=== PATIENT | male | born 1970 | race Caucasian/White ===

== ENCOUNTER 2019-04-21 05:57 | Inpatient (IN) | payer OTHER ==
[~2019-04-21 05:57] MED LIST: Buffered Lidocaine 1% SYRIN* 1 ML/SYRINGE INTRADERM ONE
[2019-04-21] MEDS ORDERED: Famotidine IV* 10 MG/ML 2 ML (20 mg) IV ONE (06:00)
[2019-04-21] MEDS ORDERED: Clindamycin 900 MG/D5W BAG(*) 900 MG/50 ML BAG IVPB ONE (06:34)
[2019-04-21] MEDS ORDERED: Famotidine IV* 10 MG/ML 2 ML (20 mg) ONE (06:34)
[2019-04-21] MEDS: Lactated Ringers 1000 ML Bag* 1,000 ML IV SCH (06:54)
[2019-04-21] MEDS ORDERED: Midazolam* 1 MG/ML 5 ML VIAL (5 MG) ONE (07:13)
[2019-04-21] MEDS ORDERED: Lidocaine 2% PF * 5 ML VIAL ONE (07:13)
[2019-04-21] MEDS ORDERED: Bupivacaine 0.25% SDV PF* 10 ML VIAL INJ ONE (07:13)
[2019-04-21] MEDS ORDERED: Propofol* 10 MG/ML 20 ML BTL ONE (07:13)
[2019-04-21] MEDS ORDERED: fentaNYL* 50 MCG/ML 5 ML VIAL (250 MCG VIAL) ONE (07:13)
[2019-04-21] MEDS ORDERED: Ketorolac INJ* 30 MG/ML 1 ML VIAL ONE (07:13)
[2019-04-21] MEDS ORDERED: KETAMINE HCL* 50 MG/ML 10 ML VIAL ONE (07:13)
[2019-04-21] MEDS ORDERED: Dexamethasone IV* 4 MG/ML 1 ML (4 MG) ONE (07:13)
[2019-04-21] MEDS ORDERED: Ondansetron INJ* 2 MG/ML VIAL ONE (07:13)
[2019-04-21] MEDS ORDERED: EPHEDrine (Pressors)* 50 MG/ML VIAL ONE (08:14)
[2019-04-21] MEDS ORDERED: Phenylephrine 40 MCG/ML SYRINGE ONE (08:22)
[2019-04-21] MEDS ORDERED: VASOPRESSIN 20 UNITS/ML 1 ML VIAL ONE (08:32)
[2019-04-21] MEDS ORDERED: fentaNYL* 50 MCG/ML 2 ML VIAL (100 MCG VIAL) IV PRN (09:22)
[2019-04-21] MEDS ORDERED: Naloxone* 0.4 MG/ML 1 ML VIAL IV PRN (09:22)
[2019-04-21] MEDS ORDERED: Ondansetron INJ* 2 MG/ML VIAL IV PRN (09:22)
[2019-04-21] MEDS ORDERED: fentaNYL* 50 MCG/ML 2 ML VIAL (100 MCG VIAL) ONE (10:31)
[2019-04-21] MEDS ORDERED: Nitroglycerin TAB 0.4 MG* 0.4 MG TAB ONE (11:19)
[2019-04-21] MEDS ORDERED: Morphine 4 MG/ML VIAL (1 ml) 4 MG/ML VIAL ONE ×3 (11:40→13:04)
[2019-04-21 13:59] LABS: Troponin I 0.08 ng/mL (<0.04)
[2019-04-21] MEDS ORDERED: Magnesium Hydroxide LIQ* 30 ML UDC PO PRN (14:22)
[2019-04-21] MEDS ORDERED: nitroGLYCERIN DRIP* 25,000 MCG/250 ML BTL IV SCH (15:30)
[2019-04-21] MEDS ORDERED: Heparin DRIP 25,000 UNITS(*) 25,000 UNITS/500 ML BAG IV SCH (15:30)
[2019-04-21 15:37] LABS: ABS Lymphocytes 0.8 10^3/ul (1.0-4.8); ABS Monocytes 0.3 10^3/ul (0-0.8); ABS Neutrophils 11.7 10^3/ul (1.5-7.7); Eosinophil % 0.1 %; Hematocrit 38 % (42-52); Hemoglobin 12.9 g/dL (14.0-18.0); Lymphocyte % 6.4 %; Mean Corpuscular HGB Conc 34 g/dL (31-36); Mean Corpuscular Hemoglobin 31 pg (27-31); Mean Corpuscular Volume 92 fL (80-94); Mean Platelet Volume 8.1 fL (7.4-10.4); Platelet Count 263 10^3/uL (150-450); Red Blood Count 4.13 10^6 /uL (4.18-5.48); Red Cell Distribution Width 13 % (10-15); White Blood Count 12.9 10^3/uL (3.5-10.8)
[2019-04-21 15:44] LABS: Activated Partial Thrombo Time 29.5 seconds (26.0-38.0)
[2019-04-21 15:53] LABS: Albumin 4.5 g/dL (3.2-5.2); Albumin/Globulin Ratio 1.6 (1-3); BUN/Creatinine Ratio 19.2 (8-20); Calcium 9.1 mg/dL (8.6-10.3); EGFR African American 91.8 (>60); EGFR Non-African American 75.9 (>60); Globulin 2.9 g/dL (2-4); Potassium 4.2 mmol/L (3.5-5.0); Total Bilirubin 0.4 mg/dL (0.2-1.0); Total Protein 7.4 g/dL (6.4-8.9)
--- NOTE | 2019-04-21 17:52 | CONS ---
CC: Dr. Delcid, Orthopedics; [facility]; Dr. Dupont, [facility], [address] [place], [place] [id number] CARDIOLOGY CONSULTATION: DATE OF CONSULT: 04/21/19 INDICATION FOR CONSULTATION: Coronary artery disease, chest pain, status post biceps tendon repair. HISTORY OF PRESENT ILLNESS: The patient is a 48-year-old gentleman with a history of coronary artery disease, history of an acute anterior wall myocardial infarction in October 2014, at that time he had a stent placed to his LAD. He also had jailed diagonal vessel at that time as well as diffuse disease of second diagonal vessel. Since then, he has had 3 episodes of non-STEMI with elevated troponin leve . Each time, a cardiac catheterization showed no progression of coronary artery disease, but consi derable disease to his diagonal vessel D1 and D2. The patient came to the [facility] this morning, he underwent tendon repair on his right b iceps tendon by Dr. Delcid. Postanesthesia, the patient was complaining of severe chest pain, he angelica cribed it as an 8/10 chest pain, radiating up into his jaw. The patient was given multiple nitroglyc radha tablets. EKG showed normal sinus rhythm with nonspecific T-wave abnormalities, but no evidence of acute ST segment elevation or depression. The patient continued to get nitroglycerin and pain con trol. Ultimately, his pain decreased when I saw him in the recovery area. He described his pain as l ess than a 1/10. The patient's initial troponin level was 0.0, his second troponin level 1-1/2 hours later was 0.08. The patient was admitted to the hospital with non-STEMI myocardial event. The patient states that each time he has to come off antiplatelet agents, he gets chest pain and elev ated troponin levels. PAST MEDICAL HISTORY: Significant for coronary artery disease, depression, hypertension, hyperlipide marisa, sleep apnea. OUTPATIENT MEDICATIONS: 1. Amlodipine 10 mg a day. 2. Aspirin 81 mg a day. 3. Atorvastatin 80 mg a day. 4. Zebeta 5 mg a day. 5. Isosorbide mononitrate 30 mg a day. 6. Lisinopril 10 mg a day. 7. Ranexa 1000 mg b.i.d. 8. Brilinta 90 mg b.i.d. 9. Effexor 150 mg a day. ALLERGIES: BACTRIM and PENICILLIN. Of note, the patient has been off his aspirin and Brilinta for 7 days. FAMILY HISTORY: Hypertension in his mother. Heart disease in his maternal aunt. SOCIAL HISTORY: He lives with his , his is a cardiac nurse. He is a former smoker, he quit in 2014. Frequent alcohol use. He is currently not working. He does not get any regular exercise. REVIEW OF SYSTEMS: Negative for fevers and chills. Negative for changes in bowel or bladder habits. Negative for change in weight. Other 12-point review is unremarkable. PHYSICAL EXAM: Height is 5 feet 6 inches, weight 205 pounds. Temperature 98.1, heart rate is 64, bl ood pressure 116/60, respiratory rate is 16, oxygen saturation 94% on room air. Sclerae anicteric. Oropharynx is pink without erythema. Carotids are 2+ without bruits. JVD is normal. Thyroid is norm al. Cardiac Exam: S1, S2 without any murmurs, rubs, or gallops. Lungs are clear to auscultation lucille aterally. There is no dullness to percussion. Abdomen is soft, nontender, nondistended with normoac tive bowel sounds. Extremities: Lower extremities show no edema. He has 2+ pulses throughout. His right upper extremity is wrapped in Jayesh bandages. The patient is awake, alert, and oriented. He mo ves all 4 extremities equally except for his right arm. DIAGNOSTIC STUDIES/LAB DATA: Current labs are only his troponin levels as described above. EKG shows normal sinus rhythm, incomplete right bundle branch block, otherwise unremarkable. No ST-T wave changes. IMPRESSION AND PLAN: This is a 48-year-old gentleman with a history of coronary artery disease as de scribed above, who is postop from a biceps tendon repair. In the recovery room, he is started having chest pain typical of his angina. He had no EKG changes. He does have minimally elevated troponin levels. Again, the patient does have a history of small vessel disease to his diagonal vessels off his left a nterior descending. He also has a jailed first diagonal at the site of his left anterior descending stent. For now, my recommendation is to start heparin, nitroglycerin. Continue to rule out myocardial infar ction. We will obtain an echocardiogram. Likely the patient will be just in the hospital for a coup le of days and then discharged home and follow up with his regular emergency management specialist. Unless there is a s ignificant elevation in his troponin level, I am not convinced that a stress test or a cardiac cathet erization is absolutely necessary. This was discussed in detail with the patient. [id number]/[facility] #: [id number]
[2019-04-21 17:54] LABS: Troponin I 1.66 ng/mL (<0.04)
[2019-04-21] MEDS ORDERED: oxyCODONE/Acetamin 5/325 MG* TAB PO PRN ×2 (18:17)
[2019-04-21] MEDS: Atorvastatin* 80 MG TAB PO SCH (18:24)
[2019-04-21] MEDS: Acetaminophen TAB* 325 MG PO PRN (18:24)
[2019-04-21] MEDS: Venlafaxine EXT RELEASE CAP* 75 MG PO SCH (18:24)
--- NOTE | 2019-04-21 20:35 | HP ---
CC: ABNER Mosquera, Starla; Cardiology, Dr. Dupont at [place]; Dr. Kyle * HISTORY AND PHYSICAL: DATE OF ADMISSION: 04/21/19 PROVIDER: Christina Degroot NP. PRIMARY CARE PROVIDER: ABNER Garzon, Starla. ATTENDING PHYSICIAN WHILE IN THE HOSPITAL: Dr. Daisy Miramontes * (dictated by Christina Degroot NP). CHIEF COMPLAINT: Postop chest pain. HISTORY OF PRESENT ILLNESS: Mr. Wheeler is a 48-year-old male with a past medical history significant for hypertension, coronary artery disease status post 2 stents, hyperlipidemia, depression, anxiety, history of GERD, who presented to [facility] for elective tendon biceps repair with Dr. Delcid. The patient was feeling in his normal state of health. On arrival to the hospital today, underwent a tendon biceps repair. Postoperatively in the PACU upon waking from anesthesia, the patient had upper chest pain that radiated to the back of both arms, aching pain in his teeth similar to previous episodes of angina. Due to the patient's cardiac history, an EKG was performed and troponin was drawn. Initial troponin was negative. The repeat second troponin was 0.08. He had again another repeat EKG that showed no significant changes. Due to his elevation in troponin and continued chest pain, Hospital Medicine was asked to evaluate him for admission. PAST MEDICAL HISTORY: Significant for, 1. Hypertension. 2. Coronary artery disease with stent placement. 3. Hyperlipidemia. 4. Depression. 5. Anxiety. 6. History of GERD. 7. [place] in 2014. PAST SURGICAL HISTORY: Hand surgery in 1992, biceps surgery in August 2018, cardiac catheterization with stent placement in 2014. FAMILY HISTORY: His mother with hypertension and hyperlipidemia. No reported history of diabetes or cancer. Maternal grandmother had cervical cancer. SOCIAL HISTORY: The patient quit smoking in 2015 after smoking a pack a day for 30 years. He does report 3 to 4 drinks of liquor daily. No illicit drug use. He is . Surrogate decision maker in the event he is unable to make his own decisions is his . He is a full code. REVIEW OF SYSTEMS: The patient denies any fever or unintended weight loss. He does report chest pain that is across his upper chest, radiating to bilateral arms and to his jaw and teeth. Denies any edema, hemoptysis, shortness of breath. Denies any pain with deep breath. Denies any nausea, vomiting, diaphoresis, diarrhea, or abdominal pain. Denies any gross hematuria, dysuria, focal weakness, or sensory loss. Denies any visual complaints, dysphagia, arthralgias, myalgias, rashes, lesions, open sores. Denies any psychosis or anxiety. PHYSICAL EXAMINATION GENERAL: At this time, Mr. Wheeler is resting comfortably on the stretcher in PACU. He is in no acute distress. VITAL SIGNS: Blood pressure 125/79, heart rate 75, respirations are 21, O2 saturation 93%, temperature is 97.2. HEENT: Head is atraumatic, normocephalic. Eyes: EOMs are intact. Sclerae anicteric and not pale. Oral mucosa appeared to be moist. NECK: Supple. LUNGS: Clear to auscultation bilaterally. No wheezes, rales, or rhonchi. CARDIAC: S1, S2. Regular rate and rhythm. No murmurs, rubs, or gallops. ABDOMEN: Soft and nontender. Bowel sounds are present x4. MUSCULOSKELETAL: He is able to move all 4 extremities. He does have a splint noted on his right arm that is intact, dry, clean. Sensation is intact to the right arm. Pedal pulses are +2 bilaterally. There is no clubbing or cyanosis. NEUROLOGIC: He is awake, alert, and oriented x3. His speech is clear. Thought process is intact. There are no gross focal deficits. SKIN: He does have a dressing and splint intact to the right arm. DIAGNOSTIC STUDIES/LAB DATA: I have ordered a CBC, BMP. Initial troponin was 0.00, repeat troponin was 0.08. He had a chest x-ray, no active cardiopulmonary disease is noted. He had electrocardiogram, which showed no acute change. ASSESSMENT AND PLAN: Mr. Wheeler is a 48-year-old male with a past medical history significant for hypertension, coronary artery disease status post stenting, hyperlipidemia, depression, anxiety, and history of gastroesophageal reflux disease, who presented to [facility] for an elective right tendon biceps repair , postoperatively developed chest pain. He will be admitted to the ICU with: 1. Non-ST elevation myocardial infarction. The patient's initial troponin was 0.00, repeat troponin was 0.08. The patient continues to have ongoing chest pain with a significant cardiac history of stenting in the LAD and subsquent nstemi's with the decrease of brilinta,. The patient stopped Brilinta approximately 7 days ago. At this time, given the elevation in troponin, I have consulted Cardiology, I will start him on a heparin drip with no bolus as per recommendation of Dr. Delcid due to biceps tendon surgery done today. I will continue his beta-dee. I will place him on nitroglycerin IV and titrate to manage his chest pain. We will continue his statin, beta-blockers. I will resume his Brilinta and aspirin this evening. We will continue to trend his troponins and get a transthoracic echocardiogram . Further recommendations as per Cardiology's . 2. Status Post Right Tendon bicep repair. Management per orthopedics. Pain management per orthopedics. 3. Hypertension. He will continue on lisinopril and amlodipine as previously prescribed. 4. Depression. He should continue on Effexor. 5. FEN: He can have a heart healthy decaf okay diet. 6. Code status: He is a full code. 7.. DVT prophylaxis: He is on a heparin drip. TIME SPENT: Time spent on this admission was 60 minutes, greater than half that time was spent at the bedside, reviewing events leading thus far to his hospitalization, performing physical exam, and reviewing my plan of care. I have discussed this with my attending, Dr. Daisy Miramontes; she is in agreement with my plan. CHRISTINA DEGROOT, KOKI [id number]/[facility] #: [id number] BETHANIE
[2019-04-21 21:04] LABS: Troponin I 3.18 ng/mL (<0.04)
[2019-04-21] MEDS ORDERED: Heparin VIAL(*) 5000 UNITS/ML VIAL (FIVE THOUSAND) IV PRN (21:48)
[2019-04-21] MEDS: Ticagrelor* 90 MG TAB PO SCH (21:49)
[2019-04-21] MEDS ORDERED: Aspirin 81 mg CHEW TAB* 81 MG TAB.CHEW PO SCH (22:00)
[2019-04-21 23:30] LABS: Troponin I 5.97 ng/mL (<0.04)
--- NOTE | 2019-04-22 00:02 | OP ---
DATE OF OPERATION: 04/21/19 - ROOM #ICU-03 DATE OF : 68 SURGEON: Miguel Delcid MD RAZOR SHARPENER: Shauna Schrader MD Another surgeon was needed as an stylist assistant, too, because of the revision nature of the surgery and the complexity of the surgery. Also ABNER Clark served in as an stylist assistant. PRE-OP DIAGNOSIS: POST-OP DIAGNOSIS: OPERATIVE PROCEDURE: ESTIMATED BLOOD LOSS: 10 mL. COMPLICATIONS: None. INDICATIONS: Kelton had the aforementioned distal biceps reconstruction with FCR tendon graft, which was done about 4 months after the original injury. Essentially it is no different now than it was before that surgery. I thought he had a very elongated graft. Talked about doing a revision. He understood and wished to proceed. FINDINGS: See above and below. DESCRIPTION OF PROCEDURE: Mr. Wheeler was seen in the preoperative holding area. The correct site, side and procedure were identified. We came back to the operating room. The arm was prepped and draped in the usual fashion and a time-out was performed. The arm was exsanguinated with the Esmarch and the tourniquet was inflated to 250 mmHg. This was a sterile tourniquet. I had reopened his prior wound and this was taken back proximally and obliquely over the biceps musculature. Dissection was carried down very carefully. The lateral antebrachial cutaneous nerve was identified and proximally was seen to be lacerated. This was consistent with his preoperative clinical symptoms. The biceps musculature was mobilized up off the brachialis fascia. Deep to that, there were a lot of adhesions. These were all released mostly with scissors but also with blunt dissection until I was able to mobilize the muscle and actually mobilized about 1 inch or 2. I then came distally and I had identified the neurovascular bundle. I traced that distally and then we came distally and released this tremendous amount of scar tissue and adhesions all about the tendon taking that all the way down to the radial tuberosity. The tendon graft was intact, which is much too long. I went ahead and preserved the distal attachment to the tendon on to the biceps. Once we had taken quite some time and had mobilized that tendon, I went ahead and released it in step-cut type fashion over a period of about 3 inches and then I went ahead and shortened it about 2 inches. I then weaved the 2 ends of the tendon back together and secured that with a combination of #5 Ethibond [id number] sutures and #2 Ethibond figure-of- eight sutures. Once I had woven the tendon together multiple times, the repair was looking very nice and solid. The elbow set about 30 degrees flexed at rest. The wound was irrigated out. I went ahead and let down the tourniquet. There was no active bleeding. The subcutaneous tissue was reapproximated with 3-0 Vicryl sutures. Skin was closed with silvino. Long-arm splint with lateral buttress was applied with the elbow in about 60 degrees of flexion. He was taken to the recovery room in stable condition. Exam in the recovery room showed intact neurological function distally. [id number]/[facility] #: [id number] BETHANIE
[2019-04-22] MEDS: Lactated Ringers 1000 ML Bag* 1,000 ML IV SCH ×3 (00:10→17:37)
[2019-04-22 02:52] LABS: Troponin I 7.87 ng/mL (<0.04)
[2019-04-22 05:40] LABS: Anion Gap 6 mmol/L (2-11); BUN/Creatinine Ratio 19.8 (8-20); Blood Urea Nitrogen 19 mg/dL (6-24); CO2 Carbon Dioxide 26 mmol/L (22-32); Calcium 8.7 mg/dL (8.6-10.3); Chloride 105 mmol/L (101-111); Cholesterol 164 mg/dL; EGFR African American 100.7 (>60); EGFR Non-African American 83.3 (>60); Glucose 153 mg/dL (70-100); HDL Cholesterol 53.8 mg/dL; LDL Cholesterol 85 mg/dL; Potassium 4.5 mmol/L (3.5-5.0); Sodium 137 mmol/L (135-145); Triglycerides 124 mg/dL
[2019-04-22 05:44] LABS: Troponin I 7.28 ng/mL (<0.04)
[2019-04-22] MEDS ORDERED: Diazepam TAB(*) 5 MG PO PRN (08:25)
[2019-04-22] MEDS ORDERED: diPHENhydraMINE PO* 25 MG PO PRN (08:25)
[2019-04-22] MEDS ORDERED: NS 0.9% 1000 ML** 1,000 ML IV SCH (08:30)
[2019-04-22 09:22] LABS: Troponin I 6.93 ng/mL (<0.04)
[2019-04-22] MEDS: Bisoprolol TAB* 5 MG PO SCH (09:22)
[2019-04-22] MEDS: Ticagrelor* 90 MG TAB PO SCH ×2 (09:22→20:08)
--- NOTE | 2019-04-22 09:23 | ECHO ---
*[facility]* [place] [address] Fax #: [phone] Transthoracic Echocardiogram (Report amended [id number]) Patient: Kelton Wheeler : 1970 Study Date: 04/22/2019 Age: 48 Gender: M HR: 65 bpm Height: 66 in /167.6 cm BSA: 2.05 m^2 Weight: 212.6 lb /96.6 kg BMI: 34.4 kg/m^2 *Fruit Receiver: * Ana De La Vega [facility] RN *Referring Physician: * Christina Degroot *Reading Physician: * Guy Kyle MD Indications: Chest Pain, unspecified. History: Coronary artery disease. [place] in 2015. Coronary stenting. GERD. Risk factors: Hypertension. Obese. Dyslipidemia. Conclusions Summary: - Left ventricle: Systolic function is at the lower limits of normal. The estimated ejection fraction is 50-55%. Hypokinesis of the midanteroseptal myocardium. Hypokinesis of the midinferoseptal myocardium. - Mitral valve: There is mild regurgitation. - Aortic valve: There is no evidence of stenosis. There is no significant regurgitation. - Tricuspid valve: There is no significant regurgitation. - Pericardium, extracardiac: There is no pericardial effusion. - Pulmonary arteries: Systolic pressure can not be accurately estimated. Study data: Transthoracic echocardiogram. Procedure: Transthoracic echocardiography was performed. Image quality was fair. The study was technically limited due to body habitus. Complete 2D, spectral Doppler, and color flow Doppler. Location: Bedside. Patient status: Inpatient. Patient room number: ICU 3. Rhythm: Normal sinus rhythm with PVC's. Findings Left ventricle: The cavity size is normal. Wall thickness is normal. Systolic function is at the lower limits of normal. The estimated ejection fraction is 50-55%. Regional wall motion abnormalities: Hypokinesis of the midanteroseptal myocardium. Hypokinesis of the midinferoseptal myocardium. Doppler parameters are consistent with abnormal left ventricular relaxation (grade 1 diastolic dysfunction). Right ventricle: The cavity size is normal. Systolic function is normal. Left atrium: The atrium is normal in size. Right atrium: The atrium is normal in size. Mitral valve: The leaflets are mildly thickened. There is no evidence of stenosis. There is mild regurgitation. Aortic valve: The valve is trileaflet. The leaflets are mildly thickened. There is no evidence of stenosis. There is no significant regurgitation. Tricuspid valve: The valve is structurally normal. There is no evidence of stenosis. There is no significant regurgitation. Pulmonic valve: The valve is structurally normal. There is no evidence of stenosis. There is trace to mild regurgitation. Aorta: Ascending aorta: The ascending aorta is not dilated. Aortic arch: The aortic arch is not dilated. The aortic root appears normal. Pericardium: There is no pericardial effusion. Pulmonary arteries: The main pulmonary artery is normal-sized. Systolic pressure can not be accurately estimated. Systemic veins: Inferior vena cava: The vessel is normal in size. There is (< 50%) respiratory change in the IVC dimension. Measurements Left ventricle Value Ref Aortic valve Value Ref HEVER, LAX 5.3 cm 4.2 - 5.8 Cate diam, ED 1.9 cm ---- ESD, LAX 3.8 cm 2.5 - 4.0 Cate diam/bsa, ED 0.9 cm/m^2 ---- FS, LAX 27 % 25 - 43 Peak v, S 1.8 m/sec ---- PW, ED 0.9 cm 0.6 - 1.0 VTI, S 41.5 cm ---- IVS/PW, ED 0.85 Mean grad, S 7.0 mm Hg ---- E', lat cate, TDI (L) 9.0 cm/sec >=10.0 Peak grad, S 13.0 mm Hg - --- E/e', lat cate, 14 LVOT/AV, VTI ratio 0.68 ---- TDI E', med cate, TDI 9.5 cm/sec >=7.0 Mitral valve Value R ef E/e', med cate, 14 Peak E 1.3 m/sec ---- TDI Peak A 1.3 m/sec ---- E', avg, TDI 9.3 cm/sec Decel time 317 ms ---- E/e', avg, TDI 14 <=14 Peak grad, D 6.8 mm Hg - --- Peak E/A ratio 1 ---- LVOT Value Ref Peak eveline, S 1.24 m/sec Pulmonic valve Value Ref VTI, S 28.1 cm Peak v, S 1.17 m/sec ---- Peak grad, S 6 mm Hg Peak grad, S 5.0 mm Hg ---- Mean grad, S 3 mm Hg Aortic root Value Ref Ventricular septum Value Ref Root diam 3.0 cm <4.2 IVS, ED 0.8 cm 0.6 - 1.0 Ascending aorta Value Ref Right ventricle Value Ref AAo AP diam, S 2.9 cm ---- HEVER, LAX 3.3 cm HEVER minor ax, A4C 3.1 cm 1.9 - 3.5 Aortic arch Value Ref mid Arch diam 2.6 cm ---- Left atrium Value Ref Decending aorta Value Ref AP dim, ES (H) 4.10 cm 3.00 - Tiffanie peak eveline 1.24 m/sec ---- 4.00 ML dim, A4C 4.6 cm Inferior vena cava Value Ref SI dim, A4C 5.2 cm Diam 1.8 cm ---- Vol/bsa, ES, 1-p 30 ml/m^2 12 - 37 A4C Vol/bsa, ES, A/L 30 ml/m^2 16 - 34 Right atrium Value Ref ML dim, ES, A4C 3.9 cm 2.6 - 4.4 SI dim, ES, A4C 4.4 cm 3.4 - 5.3 Estimated RAP 8 mm Hg Legend: (L) and (H) dewayne values outside specified reference range. Amended Guy Kyle MD 04/22/2019 10:16
--- NOTE | 2019-04-22 11:39 | PN ---
Progress Note - Progress Note Date of Service: 04/22/19 SOAP: Subjective: []Pt seen at bedside in ICU, he is going to the slab polisher today. RUE nonpainful and no numbness or tingling. Objective: []Gen: Appears well, NAD RUE: Splint CDI, soft area pulled away and forearm and upper arm compressible and nonpainful. Able to f/e all digits without pain. Cap refill less than two seconds distally, sensation intact to light touch distally Assessment: []POD 1 sp Revision distal biceps Plan: []NWB RUE supervisor cytogenetic laboratory today FU Dr Delcid outpt as scheduled Vital Signs Temp 97.4 F 04/22/19 08:00 Pulse 56 04/22/19 11:17 Resp 17 04/22/19 11:35 BP 152/111 04/22/19 11:17 Pulse Ox 96 04/22/19 11:17 Intake & Output 04/21/19 04/22/19 04/22/19 18:59 06:59 18:59 Intake Total 800 2352 Output Total 2150 Balance 800 202 Weight 213 lb 13.574 oz 208 lb 15.971 oz Intake: IV Fluids 50 1562 LR 1562 NS 100ML, Clindamycin 50 600MG Medicated IV 390 CC - Nitroglycerine/ 96 Tridil Heparin 294 Oral 750 400 Output: Urine 2150 Other: Estimated Void Large Large # Voids 1 0 Laboratory Last Values WBC 12.9 10^3/uL (3.5-10.8) H 04/21/19 15:15 RBC 4.13 10^6 /uL (4.18-5.48) L 04/21/19 15:15 Hgb 12.9 g/dL (14.0-18.0) L 04/21/19 15:15 Hct 38 % (42-52) L 04/21/19 15:15 MCV 92 fL (80-94) 04/21/19 15:15 MCH 31 pg (27-31) 04/21/19 15:15 MCHC 34 g/dL (31-36) 04/21/19 15:15 RDW 13 % (10-15) 04/21/19 15:15 Plt Count 263 10^3/uL (150-450) 04/21/19 15:15 MPV 8.1 fL (7.4-10.4) 04/21/19 15:15 Neut % (Auto) 90.9 % 04/21/19 15:15 Lymph % (Auto) 6.4 % 04/21/19 15:15 [place] % (Auto) 2.4 % 04/21/19 15:15 Eos % (Auto) 0.1 % 04/21/19 15:15 Baso % (Auto) 0.2 % 04/21/19 15:15 Absolute Neuts (auto) 11.7 10^3/ul (1.5-7.7) H 04/21/19 15:15 Absolute Lymphs (auto) 0.8 10^3/ul (1.0-4.8) L 04/21/19 15:15 Absolute Monos (auto) 0.3 10^3/ul (0-0.8) 04/21/19 15:15 Absolute Eos (auto) 0.0 10^3/ul (0-0.6) 04/21/19 15:15 Absolute Basos (auto) 0.0 10^3/ul (0-0.2) 04/21/19 15:15 Absolute Nucleated RBC 0.0 10^3/ul 04/21/19 15:15 Nucleated RBC % 0.0 04/21/19 15:15 INR (Anticoag Therapy) 1.00 (0.82-1.09) 04/21/19 15:15 APTT 90.5 seconds (26.0-38.0) H 04/22/19 09:47 Sodium 137 mmol/L (135-145) 04/22/19 05:05 Potassium 4.5 mmol/L (3.5-5.0) 04/22/19 05:05 Chloride 105 mmol/L (101-111) 04/22/19 05:05 Carbon Dioxide 26 mmol/L (22-32) 04/22/19 05:05 Anion Gap 6 mmol/L (2-11) 04/22/19 05:05 BUN 19 mg/dL (6-24) 04/22/19 05:05 Creatinine 0.96 mg/dL (0.67-1.17) 04/22/19 05:05 Est GFR ( Amer) 100.7 (>60) 04/22/19 05:05 Est GFR (Non-Af Amer) 83.3 (>60) 04/22/19 05:05 BUN/Creatinine Ratio 19.8 (8-20) 04/22/19 05:05 Glucose 153 mg/dL (70-100) H 04/22/19 05:05 Calcium 8.7 mg/dL (8.6-10.3) 04/22/19 05:05 Total Bilirubin 0.40 mg/dL (0.2-1.0) 04/21/19 15:15 AST 25 U/L (13-39) 04/21/19 15:15 ALT 26 U/L (7-52) 04/21/19 15:15 Alkaline Phosphatase 78 U/L (34-104) 04/21/19 15:15 Troponin I 6.93 ng/mL (<0.04) H* 04/22/19 08:40 Total Protein 7.4 g/dL (6.4-8.9) 04/21/19 15:15 Albumin 4.5 g/dL (3.2-5.2) 04/21/19 15:15 Globulin 2.9 g/dL (2-4) 04/21/19 15:15 Albumin/Globulin Ratio 1.6 (1-3) 04/21/19 15:15 Triglycerides 124 mg/dL 04/22/19 05:05 Cholesterol 164 mg/dL 04/22/19 05:05 LDL Cholesterol 85 mg/dL 04/22/19 05:05 HDL Cholesterol 53.8 mg/dL 04/22/19 05:05
[2019-04-22] MEDS ORDERED: Heparin 2 UNITS/ML IVPREMIX* 2,000 ML IV ONE (11:45)
[2019-04-22] MEDS ORDERED: Midazolam* 1 MG/ML 5 ML VIAL (5 MG) ONE (11:45)
[2019-04-22] MEDS ORDERED: fentaNYL* 50 MCG/ML 2 ML VIAL (100 MCG VIAL) ONE (11:45)
[2019-04-22] MEDS ORDERED: Iohexol 350 (CONTRAST) 200 ML MDV IV ONE (11:46)
[2019-04-22] MEDS ORDERED: Lidocaine 1% INJ* 10 MG/ML 30 ML SDV ONE (11:46)
--- NOTE | 2019-04-22 15:30 | CATH ---
"*[facility]* [place] [address] Main: [phone] [email or web address] Cardiac Catheterization Patient: Kelton Wheeler : 1970 Study Date: 04/22/2019 Age: 48 Gender: M HR: Height: 66 in /167.6 cm BSA: 2.13 m^2 Weight: 207.9 lb /94.5 kg BMI: 33.6 kg/m^2 Manager Risk Management: Guy Kyle MD Ordering Physician: Guy Kyle MD Referring Physician: Guy Kyle MD, Saroj Vyas, --- - Left coronary angiography. - Right coronary angiography. Summary: 1. 1st diagonal: Ostial lesion: There is a 90% stenosis. 2. 2nd diagonal: Ostial lesion: There is an 80% stenosis. 3. Stent to proximal left anterior descending coronary is patent. Recommendations: NTSTEMI with no critical CAD. Continue dual antiplatelet therapy History: PMH: Myocardial infarction. Risk factors: Hypertension. Dyslipidemia. Family history is significant for coronary artery disease. Labs, prior tests, procedures, and surgery: Catheterization with coronary intervention (06/25/2014). Blood tests: Troponin I (pre-procedure) of 6.93 ng/ml. International normalized ratio (INR) of 1. Partial thromboplastin time (PTT) of 90.5 sec. Serum potassium (K) of 4.5 mEq/l. Serum sodium (Na) of 137 mEq/l. Serum creatinine (current admission) of 0.96 mg/dl. Blood urea nitrogen of 19 mg/dl. Glucose of 153 mg/dl. Platelet count of 263 th/ul. White blood cell count (WBC) of 0.01 th/ul. Red blood cell count (RBC) of 4130 th/ul. Hematocrit of 38 %. Hemoglobin (pre-procedure) of 12.9 g/dl. Study data: Location: Catheterization laboratory. Consent: The risks, benefits, and alternatives to the procedure were explained to the patient and/or their healthcare product support representative and written informed consent was obtained. All available pre-procedure labs were reviewed. Height: 167.6 cm. 66 in. Weight: 94.5 kg. 207.9 lb. Body surface area: 2.13 m^2. Body mass index: 33.6 kg/m^2. Procedure: 1. Initial setup. The patient was brought to the laboratory. Surface ECG leads, blood pressure measurements, and pulse oximetric signals were monitored. A baseline seven lead ECG was recorded. A time out was observed per protocol. 2. Skin preparation. The planned puncture sites were prepped and draped in the usual sterile manner. 3. Local anesthesia. 1% lidocaine was administered. 4. Sedation. was administered. 5. Local anesthesia. 1% lidocaine (10 ml) was administered. 6. Right femoral artery access. A 6.5F Merit Prelude sheath was advanced into the vessel. 7. Selective left coronary angiography. A 6F JL 4 catheter was advanced into the left coronary vessel ostium under fluoroscopic guidance. Contrast was injected. Images were obtained in multiple projections. 8. Selective right coronary angiography. A 6F JR 4 catheter was advanced into the right coronary vessel ostium under fluoroscopic guidance. Contrast was injected. Images were obtained in multiple projections. 9. Right femoral artery hemostasis. Vessel closure was achieved with a 6/7 Fr MYNX Vascular Closure device. 10. Right femoral artery hemostasis. Vessel closure was achieved with a 6/7 Fr MYNX Vascular Closure device. Study completion: Minimal estimated blood loss. All catheters inserted during the procedure were removed. There were no apparent complications. Administered medications: BRILINTA (Ticagrelor), 90mg, PO. VALIUM (Diazepam), 5mg, PO. BENADRYL (Diphenhydramine), 25mg, PO. Heparin, infusion, at a rate of 1,050units/hr, IV was discontinued. VERSED (Midazolam), 1mg, IV. Nitroglycerin, infusion, at a rate of 15mcg/min was discontinued. NaCl 0.9% , infusion , at a rate of 100 ml/hr. Contrast: Omnipaque 350 70 ml (total dose). Omnipaque 350 130 ml (wasted). Radiation: Fluoroscopy dose: 129.4 cGy. Discharge: The patient tolerated the procedure well and was discharged from the lab in stable condition. Findings Coronary arteries: The coronary circulation is right dominant. Left main: Normal, 0% stenosis. LAD: Prior intervention: stent in the proximal LAD. The stented segment is patent. 1st diagonal: Ostial lesion: There is a 90% stenosis. 2nd diagonal: Ostial lesion: There is an 80% stenosis. Left circumflex: Normal, 0% stenosis. Right coronary: Mild diffuse disease. Hemodynamics: + + + |Stage description |Condition 1 -| + + + |Arterial pressure s/d (m)|117/70 (91) | + + + Prepared and electronically signed by Guy Kyle MD 04/22/2019 15:29"
[2019-04-22] MEDS: Venlafaxine EXT RELEASE CAP* 75 MG PO SCH (17:22)
[2019-04-22] MEDS: Atorvastatin* 80 MG TAB PO SCH (17:22)
[2019-04-22] MEDS ORDERED: Aspirin EC TAB* 81 MG TAB.EC PO SCH (18:00)
--- NOTE | 2019-04-22 19:22 | PN ---
Subjective Date of Service: 04/22/19 Interval History: Pt is feeling ok. No further chest pain. No SOB. 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 Objective Active Medications: Acetaminophen (Tylenol Tab*) 650 mg PO Q4H PRN PRN Reason: MILD PAIN or TEMP > 100.4 Last Admin: 04/21/19 18:24 Dose: 650 mg Aspirin (Aspirin 81 Mg Chew Tab*) 81 mg PO 2100 [facility] Atorvastatin Calcium (Lipitor*) 80 mg PO QPM COUNT INCLUDES THE [facility] Last Admin: 04/22/19 17:22 Dose: 80 mg Bisoprolol Fumarate (Zebeta Tab*) 5 mg PO QAM COUNT INCLUDES THE [facility] Last Admin: 04/22/19 09:22 Dose: 5 mg Heparin Sodium (Porcine) (Heparin Vial(*)) 0 units IV .FOR BOLUSES PRN PRN Reason: HEPARIN DRIP BOLUSES Last Admin: 04/21/19 22:03 Dose: 4,000 units Lactated Ringer's (Lactated Ringers 1000 Ml Bag*) 1,000 mls @ 125 mls/hr IV PER RATE COUNT INCLUDES THE [facility] Last Admin: 04/22/19 17:37 Dose: 125 mls/hr Magnesium Hydroxide (Milk Of Magnesia Liq*) 30 ml PO Q4H PRN PRN Reason: CONSTIPATION Oxycodone/Acetaminophen (Percocet 5/325 Tab*) 1 tab PO Q3H PRN PRN Reason: PAIN - MILD Oxycodone/Acetaminophen (Percocet 5/325 Tab*) 2 tab PO Q4H PRN PRN Reason: PAIN - MODERATE Ticagrelor (Brilinta*) 90 mg PO BID COUNT INCLUDES THE [facility] Last Admin: 04/22/19 09:22 Dose: 90 mg Venlafaxine HCl (Effexor Xr Cap*) 150 mg PO QPM COUNT INCLUDES THE [facility] Last Admin: 04/22/19 17:22 Dose: 150 mg Vital Signs - 8 hr 04/22/19 04/22/19 04/22/19 11:17 11:32 11:35 Temperature Pulse Rate 56 56 Respiratory 14 16 17 Rate Blood Pressure 152/111 180/109 (mmHg) O2 Sat by Pulse 96 95 Oximetry 04/22/19 04/22/19 04/22/19 12:50 12:57 13:00 Temperature 98.6 F Pulse Rate 55 60 59 Respiratory 15 9 Rate Blood Pressure 165/67 (mmHg) O2 Sat by Pulse 98 95 96 Oximetry 04/22/19 04/22/19 04/22/19 13:39 13:50 14:00 Temperature Pulse Rate 55 60 57 Respiratory 15 14 13 Rate Blood Pressure 165/67 119/73 114/77 (mmHg) O2 Sat by Pulse 98 100 97 Oximetry 04/22/19 04/22/19 04/22/19 14:15 14:31 14:45 Temperature Pulse Rate 61 63 55 Respiratory 16 17 25 Rate Blood Pressure 104/69 120/73 115/66 (mmHg) O2 Sat by Pulse 98 96 93 Oximetry 04/22/19 04/22/19 04/22/19 15:00 15:15 15:30 Temperature Pulse Rate 58 57 55 Respiratory 18 16 18 Rate Blood Pressure 117/69 112/74 109/62 (mmHg) O2 Sat by Pulse 93 93 94 Oximetry 04/22/19 04/22/19 04/22/19 15:45 16:00 16:15 Temperature 98.1 F Pulse Rate 61 59 53 Respiratory 19 18 19 Rate Blood Pressure 106/64 99/60 121/69 (mmHg) O2 Sat by Pulse 90 91 94 Oximetry 04/22/19 04/22/19 04/22/19 16:30 16:45 17:00 Temperature Pulse Rate 52 53 51 Respiratory 15 21 18 Rate Blood Pressure 110/72 116/71 100/55 (mmHg) O2 Sat by Pulse 94 94 94 Oximetry 04/22/19 04/22/19 04/22/19 17:17 17:30 17:46 Temperature Pulse Rate 56 54 Respiratory 16 13 18 Rate Blood Pressure 132/91 103/72 131/80 (mmHg) O2 Sat by Pulse 98 96 Oximetry 04/22/19 04/22/19 18:00 19:00 Temperature Pulse Rate 55 59 Respiratory 19 19 Rate Blood Pressure 131/74 123/93 (mmHg) O2 Sat by Pulse 96 93 Oximetry Oxygen Devices in Use Now: None Appearance: Middle aged male sitting up in bed, NAD Eyes: No Scleral Icterus Ears/Nose/Mouth/Throat: Mucous Membranes Moist Respiratory: Symmetrical Chest Expansion and Respiratory Effort, Clear to Auscultation Cardiovascular: NL Sounds; No Murmurs; No JVD, RRR, No Edema Abdominal: NL Sounds; No Tenderness; No Distention Extremities: No Clubbing, Cyanosis Skin: No Nodules or Sclerosis Neurological: Alert and Oriented x 3 Result Diagrams: 04/21/19 15:15 04/22/19 05:05 Microbiology and Other Data: Microbiology 04/21/19 17:15 Nasal Screen MRSA (PCR) - Final Nasal Mrsa Not Detected Assess/Plan/Problems-Billing Mr Wheeler is a 48 yo M who has a h/o CAD who developed chest pain after awakening from anesthesia with c/o chest pain and was admitted for NSTEMI. - Patient Problems (1) NSTEMI (non-ST elevated myocardial infarction) Current Visit: Yes Status: Acute Code(s): I21.4 - NON-ST ELEVATION (NSTEMI) MYOCARDIAL INFARCTION SNOMED Code(s): 82763779 Comment: S/P cath earlier today. No new findings, stent without restenosis, 90% diagonal lesion not amenable to intervention. Continue ASA, lipitor and bisoprolol. (2) HTN (hypertension) Current Visit: Yes Status: Acute Code(s): I10 - ESSENTIAL (PRIMARY) HYPERTENSION SNOMED Code(s): 09719743 Comment: Under good control on bisoprolol. (3) HLD (hyperlipidemia) Current Visit: Yes Status: Acute Code(s): E78.5 - HYPERLIPIDEMIA, UNSPECIFIED SNOMED Code(s): 15241175 Comment: Continue lipitor (4) DVT prophylaxis Current Visit: Yes Status: Acute Code(s): Z29.9 - ENCOUNTER FOR PROPHYLACTIC MEASURES, UNSPECIFIED SNOMED Code(s): 089267768 Comment: ASA, ambulation, no anticoagulation secondary bleeding from surgical site (5) Full code status Current Visit: Yes Status: Acute Code(s): Z78.9 - OTHER SPECIFIED HEALTH STATUS SNOMED Code(s): 484856971
[2019-04-22] MEDS ORDERED: Aspirin 81 mg CHEW TAB* 81 MG TAB.CHEW PO SCH (21:00)
[2019-04-22] MEDS: Acetaminophen TAB* 325 MG PO PRN (21:04)
[2019-04-23 06:23] LABS: ABS Eosinophils 0.1 10^3/ul (0-0.6); ABS Lymphocytes 2.5 10^3/ul (1.0-4.8); ABS Monocytes 0.9 10^3/ul (0-0.8); ABS Neutrophils 6.3 10^3/ul (1.5-7.7); Eosinophil % 0.8 %; Hematocrit 36 % (42-52); Lymphocyte % 25.7 %; Mean Corpuscular HGB Conc 34 g/dL (31-36); Mean Corpuscular Hemoglobin 31 pg (27-31); Mean Corpuscular Volume 92 fL (80-94); Mean Platelet Volume 8.4 fL (7.4-10.4); Nucleated Red Blood Cells % 0.1; Platelet Count 229 10^3/uL (150-450); Red Blood Count 3.88 10^6 /uL (4.18-5.48); Red Cell Distribution Width 14 % (10-15); White Blood Count 9.7 10^3/uL (3.5-10.8)
[2019-04-23 06:50] LABS: Calcium 8.9 mg/dL (8.6-10.3); EGFR African American 96.1 (>60); EGFR Non-African American 79.4 (>60); Potassium 4.2 mmol/L (3.5-5.0)
[2019-04-23 07:48] VITALS: BP 128/76
[2019-04-23] MEDS: Bisoprolol TAB* 5 MG PO SCH (08:44)
[2019-04-23] MEDS: Ticagrelor* 90 MG TAB PO SCH (08:44)
[2019-04-23] MEDS: Acetaminophen TAB* 325 MG PO PRN (08:49)
--- NOTE | 2019-04-23 09:57 | PN ---
Subjective Date of Service: 04/23/19 Interval History: status post CATH 04/22/19. Overnight did not have any acute issues. No chest pain this morning. Family History: Unchanged from Admission Social History: Unchanged from Admission Past Medical History: Unchanged from Admission Objective Active Medications: Acetaminophen (Tylenol Tab*) 650 mg PO Q4H PRN PRN Reason: MILD PAIN or TEMP > 100.4 Last Admin: 04/23/19 08:49 Dose: 650 mg Aspirin (Aspirin 81 Mg Chew Tab*) 81 mg PO 2100 [facility] Last Admin: 04/22/19 20:08 Dose: 81 mg Atorvastatin Calcium (Lipitor*) 80 mg PO QPM [facility] Last Admin: 04/22/19 17:22 Dose: 80 mg Bisoprolol Fumarate (Zebeta Tab*) 5 mg PO QAM [facility] Last Admin: 04/23/19 08:44 Dose: 5 mg Magnesium Hydroxide (Milk Of Magnesia Liq*) 30 ml PO Q4H PRN PRN Reason: CONSTIPATION Oxycodone/Acetaminophen (Percocet 5/325 Tab*) 1 tab PO Q3H PRN PRN Reason: PAIN - MILD Oxycodone/Acetaminophen (Percocet 5/325 Tab*) 2 tab PO Q4H PRN PRN Reason: PAIN - MODERATE Ticagrelor (Brilinta*) 90 mg PO BID [facility] Last Admin: 04/23/19 08:44 Dose: 90 mg Venlafaxine HCl (Effexor Xr Cap*) 150 mg PO QPM [facility] Last Admin: 04/22/19 17:22 Dose: 150 mg Vital Signs - 8 hr 04/23/19 04/23/19 03:19 07:47 Temperature 97.5 F 97.3 F Pulse Rate 53 56 Respiratory 18 20 Rate Blood Pressure 129/90 128/76 (mmHg) O2 Sat by Pulse 96 98 Oximetry Oxygen Devices in Use Now: None Appearance: well developed, well nourished male lying in bed, not in distress Eyes: PERRLA Ears/Nose/Mouth/Throat: Mucous Membranes Moist Respiratory: Symmetrical Chest Expansion and Respiratory Effort, Clear to Auscultation Cardiovascular: RRR, No Edema, - - No chest wall tenderness, regular rate rhythm. no murmurs. Abdominal: NL Sounds; No Tenderness; No Distention, No Hepatosplenomegaly Extremities: No Edema Neurological: Alert and Oriented x 3 Result Diagrams: 04/23/19 05:27 04/23/19 05:27 Microbiology and Other Data: Microbiology 04/21/19 17:15 Nasal Screen MRSA (PCR) - Final Nasal Mrsa Not Detected Assess/Plan/Problems-Billing Mr Wheeler is a 48 yo M who has a h/o CAD who developed chest pain after awakening from anesthesia with c/o chest pain and was admitted for NSTEMI. - Patient Problems (1) DVT prophylaxis Current Visit: Yes Status: Acute Code(s): Z29.9 - ENCOUNTER FOR PROPHYLACTIC MEASURES, UNSPECIFIED SNOMED Code(s): 198853762 Comment: ASA, ambulation, no anticoagulation secondary bleeding from surgical site (2) Full code status Current Visit: Yes Status: Acute Code(s): Z78.9 - OTHER SPECIFIED HEALTH STATUS SNOMED Code(s): 267624566 (3) HLD (hyperlipidemia) Current Visit: Yes Status: Acute Code(s): E78.5 - HYPERLIPIDEMIA, UNSPECIFIED SNOMED Code(s): 74959148 Comment: Continue lipitor (4) HTN (hypertension) Current Visit: Yes Status: Acute Code(s): I10 - ESSENTIAL (PRIMARY) HYPERTENSION SNOMED Code(s): 29906784 Comment: Under good control on bisoprolol. (5) NSTEMI (non-ST elevated myocardial infarction) Current Visit: Yes Status: Acute Code(s): I21.4 - NON-ST ELEVATION (NSTEMI) MYOCARDIAL INFARCTION SNOMED Code(s): 48194942 Comment: S/P cath 04/22. No new findings, stent without restenosis, 90% diagonal lesion not amenable to intervention. Continue ASA, ticagrelor, lipitor and bisoprolol. (6) Rupture of right biceps tendon Current Visit: Yes Status: Acute Code(s): S46.211A - STRAIN OF MUSC/FASC/ TEND PRT BICEPS, RIGHT ARM, INIT SNOMED Code(s): 203384471 Comment: status post revision right distal bicep tendon repair on 04/21/19 Status and Disposition: plan for discharge home today. will need orhto and cardio follow up.
--- NOTE | 2019-04-23 11:11 | PN ---
<TanishaSabi - Last Filed: 04/23/19 11:01> Subjective Date of Service: 04/23/19 - NSTEMI, anterior RWMA Interval History: No events last night. Patient lying upright in bed with at bedside. Offers no complaints. Denies chest pain, sob, dizziness, palpitations. Medications Active Medications: Acetaminophen (Tylenol Tab*) 650 mg PO Q4H PRN PRN Reason: MILD PAIN or TEMP > 100.4 Last Admin: 04/23/19 08:49 Dose: 650 mg Aspirin (Aspirin 81 Mg Chew Tab*) 81 mg PO 2100 [facility] Last Admin: 04/22/19 20:08 Dose: 81 mg Atorvastatin Calcium (Lipitor*) 80 mg PO QPM [facility] Last Admin: 04/22/19 17:22 Dose: 80 mg Bisoprolol Fumarate (Zebeta Tab*) 5 mg PO QAM [facility] Last Admin: 04/23/19 08:44 Dose: 5 mg Magnesium Hydroxide (Milk Of Magnesia Liq*) 30 ml PO Q4H PRN PRN Reason: CONSTIPATION Oxycodone/Acetaminophen (Percocet 5/325 Tab*) 1 tab PO Q3H PRN PRN Reason: PAIN - MILD Oxycodone/Acetaminophen (Percocet 5/325 Tab*) 2 tab PO Q4H PRN PRN Reason: PAIN - MODERATE Ticagrelor (Brilinta*) 90 mg PO BID [facility] Last Admin: 04/23/19 08:44 Dose: 90 mg Venlafaxine HCl (Effexor Xr Cap*) 150 mg PO QPM [facility] Last Admin: 04/22/19 17:22 Dose: 150 mg Objective Vital Signs: Temp Pulse Resp BP Pulse Ox 97.3 F 56 20 128/76 98 04/23/19 07:47 04/23/19 07:47 04/23/19 07:47 04/23/19 07:47 04/23/19 07:47 Oxygen Devices in Use Now: None Appearance: sitting upright in bed, A+O x3, cooperative, NAD Ears/Nose/Mouth/Throat: NL Teeth, Lips, Gums, Clear Oropharnyx, Mucous Membranes Moist Neck: NL Appearance and Movements; NL JVP, Trachea Midline Respiratory: Symmetrical Chest Expansion and Respiratory Effort, Clear to Auscultation Cardiovascular: NL Sounds; No Murmurs; No JVD, RRR, No Edema Extremities: No Edema, - - right femoral access site examined, non tender to palpation. no hematoma. 3+ femoral pulse palpated with 2+ right Dorsalis pedis pulse palpated. Neurological: Alert and Oriented x 3 Lines/Tubes/Other Access: Clean, Dry and Intact Peripheral IV Laboratory Results: 04/23/19 05:27 04/23/19 05:27 INR (Anticoag Therapy) 1.00 (0.82-1.09) 04/21/19 15:15 APTT 90.5 seconds (26.0-38.0) H 04/22/19 09:47 Total Bilirubin 0.40 mg/dL (0.2-1.0) 04/21/19 15:15 AST 25 U/L (13-39) 04/21/19 15:15 ALT 26 U/L (7-52) 04/21/19 15:15 Alkaline Phosphatase 78 U/L (34-104) 04/21/19 15:15 Total Protein 7.4 g/dL (6.4-8.9) 04/21/19 15:15 Albumin 4.5 g/dL (3.2-5.2) 04/21/19 15:15 Globulin 2.9 g/dL (2-4) 04/21/19 15:15 Albumin/Globulin Ratio 1.6 (1-3) 04/21/19 15:15 Triglycerides 124 mg/dL 04/22/19 05:05 Cholesterol 164 mg/dL 04/22/19 05:05 LDL Cholesterol 85 mg/dL 04/22/19 05:05 HDL Cholesterol 53.8 mg/dL 04/22/19 05:05 04/21/19 04/21/19 04/21/19 11:33 12:56 17:15 Troponin I 0.00 0.08 H* 1.66 H* 04/21/19 04/21/19 04/22/19 20:25 23:00 02:25 Troponin I 3.18 H* 5.97 H* 7.87 H* 04/22/19 04/22/19 05:05 08:40 Troponin I 7.28 H* 6.93 H* Laboratory Results - last 24 hr 04/23/19 04/23/19 05:27 05:27 WBC 9.7 RBC 3.88 L Hgb 12.0 L Hct 36 L MCV 92 MCH 31 MCHC 34 RDW 14 Plt Count 229 MPV 8.4 Neut % (Auto) 64.3 Lymph % (Auto) 25.7 Taliaferro % (Auto) 8.9 Eos % (Auto) 0.8 Baso % (Auto) 0.3 Absolute Neuts (auto) 6.3 Absolute Lymphs (auto) 2.5 Absolute Monos (auto) 0.9 H Absolute Eos (auto) 0.1 Absolute Basos (auto) 0.0 Absolute Nucleated RBC 0.0 Nucleated RBC % 0.1 Sodium 139 Potassium 4.2 Chloride 105 Carbon Dioxide 30 Anion Gap 4 BUN 18 Creatinine 1.00 Est GFR ( Amer) 96.1 Est GFR (Non-Af Amer) 79.4 BUN/Creatinine Ratio 18.0 Glucose 89 Calcium 8.9 Diagnostic Imaging: To view the full procedure details, close this document and click on the camera icon from the Reports list. *[facility]* [place] [address] Main: [phone] 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 - Right coronary angiography. Summary: 1. 1st diagonal: Ostial lesion: There is a 90% stenosis. 2. 2nd diagonal: Ostial lesion: There is an 80% stenosis. 3. Stent to proximal left anterior descending coronary is patent. Recommendations: NTSTEMI with no critical CAD. Continue dual antiplatelet therapy History: PMH: Myocardial infarction. Risk factors: Hypertension. Dyslipidemia. Family history is significant for coronary artery disease. Labs, prior tests, procedures, and surgery: Catheterization with coronary intervention (06/25/2014). This report is only to be considered final once signed by the Provider(s) as displayed in the "<Electronically Signed by >" field (s). Absence of a signature indicates the report is in a draft status and still needs to be finalized. In the event this document was created by someone other than the signing Provider, the individual initiating the document will be listed in the "Entered by:" or "Dictated by:" hennessy. *[facility]* [place] [address] Fax #: [phone] Transthoracic Echocardiogram (Report amended [id number]) Patient: Kelton Wheeler : 1970 Study Date: 04/22/2019 Age: 48 Gender: M HR: 65 bpm Height: 66 in /167.6 cm BSA: 2.05 m^2 Weight: 212.6 lb /96.6 kg BMI: 34.4 kg/m^2 *[employer]: * Ana De La Vega RDCS RN *Referring Physician: * Christina Degroot *Reading Physician: * Guy Kyle MD Indications: Chest Pain, unspecified. History: Coronary artery disease. NM in 2015. Coronary stenting. GERD. Risk factors: Hypertension. Obese. Dyslipidemia. Conclusions Summary: - Left ventricle: Systolic function is at the lower limits of normal. The estimated ejection fraction is 50-55%. Hypokinesis of the midanteroseptal myocardium. Hypokinesis of the midinferoseptal myocardium. - Mitral valve: There is mild regurgitation. - Aortic valve: There is no evidence of stenosis. There is no significant regurgitation. - Tricuspid valve: There is no significant regurgitation. - Pericardium, extracardiac: There is no pericardial effusion. - Pulmonary arteries: Systolic pressure can not be accurately estimated. Study data: Transthoracic echocardiogram. Procedure: This report is only to be considered final once signed by the Provider(s) as displayed in the "<Electronically Signed by >" field (s). Absence of a signature indicates the report is in a draft status and still needs to be finalized. In the event this document was created by someone other than the signing Provider, the individual initiating the document will be listed in the "Entered by:" or "Dictated by:" hennessy. EKG Data: ECG 04/22/2019; Sinus rhythm rate 62 no ischemic ECG changes noted. Telemetry reviewed; Sinus bradycardia HR 45-50 Assessment/Plan #1 NSTEMI; Troponin peaked on 04/22/2019 at 7.8. No c/o chest pain. + anterior WMA noted on echo. LHC did not reveal progression of known Diag disease. Intervention was not recommended. Right femoral access is intact, no hematoma. HE will need to follow up with primary director outcomes Dr. Smith in 7 days for groin check. If he is unable to get seen in that time he should follow up with PCP. Recommend DAPT for 6 months. He is on ASA 81/day in combination with Brilinta 90 BID and states he has medication at home. D/C bblocker due to relative bradycardia. Recommend continuing Imdur, statin and Ranexa therapy. #2 h/o HLD; Goal LDL < 70 on high intensity statin therapy #3 Relative bradycardia. Will d/c Bblocker. Not symptomatic #4 Disposition pending course. Will sign off. D/W Dr. Bailey who agrees with plan of care. Attending: Rina Bailey <Rina Bailey - Last Filed: 04/23/19 13:42> Medications Active Medications: Acetaminophen (Tylenol Tab*) 650 mg PO Q4H PRN PRN Reason: MILD PAIN or TEMP > 100.4 Last Admin: 04/23/19 08:49 Dose: 650 mg Aspirin (Aspirin 81 Mg Chew Tab*) 81 mg PO 2100 [facility] Last Admin: 04/22/19 20:08 Dose: 81 mg Atorvastatin Calcium (Lipitor*) 80 mg PO QPM [facility] Last Admin: 04/22/19 17:22 Dose: 80 mg Magnesium Hydroxide (Milk Of Magnesia Liq*) 30 ml PO Q4H PRN PRN Reason: CONSTIPATION Oxycodone/Acetaminophen (Percocet 5/325 Tab*) 1 tab PO Q3H PRN PRN Reason: PAIN - MILD Oxycodone/Acetaminophen (Percocet 5/325 Tab*) 2 tab PO Q4H PRN PRN Reason: PAIN - MODERATE Ticagrelor (Brilinta*) 90 mg PO BID [facility] Last Admin: 04/23/19 08:44 Dose: 90 mg Venlafaxine HCl (Effexor Xr Cap*) 150 mg PO QPM [facility] Last Admin: 04/22/19 17:22 Dose: 150 mg Objective Vital Signs: Temp Pulse Resp BP Pulse Ox 97.3 F 56 20 128/76 98 04/23/19 07:47 04/23/19 07:47 04/23/19 08:00 04/23/19 07:47 04/23/19 07:47 Laboratory Results: 04/23/19 05:27 04/23/19 05:27 INR (Anticoag Therapy) 1.00 (0.82-1.09) 04/21/19 15:15 APTT 90.5 seconds (26.0-38.0) H 04/22/19 09:47 Total Bilirubin 0.40 mg/dL (0.2-1.0) 04/21/19 15:15 AST 25 U/L (13-39) 04/21/19 15:15 ALT 26 U/L (7-52) 04/21/19 15:15 Alkaline Phosphatase 78 U/L (34-104) 04/21/19 15:15 Total Protein 7.4 g/dL (6.4-8.9) 04/21/19 15:15 Albumin 4.5 g/dL (3.2-5.2) 04/21/19 15:15 Globulin 2.9 g/dL (2-4) 04/21/19 15:15 Albumin/Globulin Ratio 1.6 (1-3) 04/21/19 15:15 Triglycerides 124 mg/dL 04/22/19 05:05 Cholesterol 164 mg/dL 04/22/19 05:05 LDL Cholesterol 85 mg/dL 04/22/19 05:05 HDL Cholesterol 53.8 mg/dL 04/22/19 05:05 04/21/19 04/21/19 04/21/19 11:33 12:56 17:15 Troponin I 0.00 0.08 H* 1.66 H* 04/21/19 04/21/19 04/22/19 20:25 23:00 02:25 Troponin I 3.18 H* 5.97 H* 7.87 H* 04/22/19 04/22/19 05:05 08:40 Troponin I 7.28 H* 6.93 H* Assessment/Plan I saw and examined the patient personally. ACS off antiplatelet agents in order to get tendon surgery done. No significant CAD, continue w/medical management including resumption of DAPT as above. I agree with the above recommendations and plan.
--- NOTE | 2019-04-23 14:05 | DS ---
CC: Starla cold roll operator Dr. Dupont; Dr. Saroj Tovar; Dr. Rina Bailey; ABNER Mosquera DISCHARGE SUMMARY: DATE OF ADMISSION: 04/21/19 DATE OF DISCHARGE: 04/23/19 REASON FOR ADMISSION: Chest pain after surgery. ADMISSION DIAGNOSES: 1. Non-ST elevation myocardial infarction. 2. Coronary artery disease. 3. Status post right tendon biceps repair. 4. Hypertension. 5. Depression. DISCHARGE DIAGNOSES: 1. Coronary artery disease with non-ST elevation myocardial infarction. 2. Hypertension. 3. Hyperlipidemia. 4. Depression. HOSPITAL COURSE: Mr. Kelton Wheeler is a 48-year-old male with past medical history of coronary artery disease status post stent in the past, who was admitted to the hospital after having a right biceps tendon repair. At postop the patient developed chest pain and subsequently hospital service was called for admitting the patient. In the emergency room, the patient was seen and evaluated, Cardiology was consulted. The patient was continued on his beta- dee, nitroglycerin IV, his aspirin as well as Brilinta were continued, and Cardiology was consulted. The patient was seen by the cold roll operator, Dr. Guy Kyle at which point it was recommended that patient be started on heparin drip which was started and patient was eventually taken to the catheterization laboratory technician. The patient underwent a cardiac catheterization on 04/22/19, which revealed first diagonal with 90% stenosis, second diagonal with ostial lesion 80 % stenosis and the stent to the proximal left atrial descending artery was patent. At that point, Cardiology recommended that this is a non-ST elevation HI with no critical lesions and they recommended to continue patient's dual antiplatelet. The patient was seen by myself this morning as well as Cardiology. They recommended to discontinue the patient's beta-dee, bisoprolol for relative bradycardia. The patient is doing well this morning, was seen by myself. The cardiac catheterization site at the right groin was examined. There is no swelling or erythema. PHYSICAL EXAMINATION: Vital Signs: Blood pressure 128/76, heart rate of 56, temperature 97.3 Fahrenheit, saturation 98% on room air. General: This is a well- developed, well-nourished, male lying in bed in no acute distress. HEENT : Pupils are equal, round, and reactive to light. There is no JVD. Oral mucosa is moist. There is no oropharyngeal erythema. Heart: Regular, but relative bradycardia. No chest wall tenderness. No murmurs. Lungs are clear to auscultation bilaterally. Abdomen: Bowel sounds are normoactive in all four quadrants. Abdomen is soft, nontender, nondistended. DISCHARGE PLAN: Discharge disposition: The patient is to be discharged home. DISCHARGE CONDITION: Fair. DISCHARGE DIET: Heart healthy. DISCHARGE MEDICATIONS: Include: 1. The patient is advised to stop his bisoprolol due to bradycardia. 2. Continue aspirin 81 mg daily. 3. Atorvastatin 80 mg daily. 4. Ticagrelor/Brilinta 90 mg daily. 5. Venlafaxine 150 mg at bedtime. 6. Amlodipine 10 mg daily. 7. Lisinopril 40 mg in the morning. 8. Isosorbide mononitrate 30 mg at bedtime. 9. Ranexa 1000 mg b.i.d. Follow up: The patient is advised to follow up with his cold roll operator within 1 week, instructions were given to the patient. The patient to follow up with Dr. Miguel Delcid who did the right biceps tendon repair in 1 to 2 weeks. The patient to follow up with his primary care doctor within a week. DISCHARGE INSTRUCTIONS: I reviewed them with his , Chata as well as the patient himself, they both verbalize understanding of the instructions. [id number]/[facility] #: [id number] MTDD
--- NOTE | 2019-05-15 21:49 | OP ---
DATE OF OPERATION: 04/21/19 - ROOM #434 DATE OF : 68 SURGEON: Miguel Delcid MD. ASSISTANTS: Shauna Schrader MD. Another surgeon was needed as an middle school assistant principal because of the revision nature of the surgery and the complexity of the surgery. Also, ABNER Clark served as an middle school assistant principal. PRE-OP DIAGNOSIS: Failed right distal biceps tendon reconstruction with autogenous FCR tendon graft, the graft did really just appear too long. POST-OP DIAGNOSIS: Failed right distal biceps tendon reconstruction with autogenous FCR tendon graft, the graft did really just appear too long. OPERATIVE PROCEDURE: Revision right distal biceps tendon reconstruction with shortening of the FCR tendon graft. NOTE: Please note the aforementioned procedure took extensive time and dissection due to the revision nature of the surgery, and the abundant scar tissue as well as the chronicity of distal biceps tendon rupture with it being almost a year since the rupture. INDICATIONS: Kelton had the aforementioned distal biceps tendon reconstruction with FCR tendon graft, which was done about 4 months after the original injury. Essentially, it is no different now than it was before surgery ; I thought he had a very elongated graft. We talked about doing a revision. He understood the risks and wished to proceed. ESTIMATED BLOOD LOSS: 10 mL. COMPLICATIONS: None. FINDINGS: See above and below. DESCRIPTION OF PROCEDURE: Mr. Wheeler was seen in the preoperative holding area. The correct site, side, and procedure were identified. We came back to the operating room where the arm was prepped and draped in the usual fashion and time- out was performed. The arm was exsanguinated with the Esmarch and the tourniquet was inflated to 250 mmHg. This was a sterile tourniquet. I had reopened the prior wound and this was taken back proximally and obliquely over the biceps musculature. Dissection was carried down very carefully. The lateral antebrachial cutaneous nerve was identified proximally and was seen to be lacerated. This was consistent with his preoperative clinical symptoms. The biceps musculature was mobilized up off the brachialis fascia; deep to that, there were a lot of adhesions. These were all released mostly with the scissors, but also with blunt dissection. I was able to mobilize muscle and actually gained about 2 inches in length. I came distally and after I identified the neurovascular bundle, I traced the bundle distally and then we came distally and released a tremendous amount of scar tissue and adhesions all about the tendon, taking down all the way down to the radial tuberosity. The tendon graft was noted to be intact, but much too long. I went ahead and preserved the distal attachment of the tendon to the bone as well as the attachment of the tendon to the biceps. I went ahead and released the tendon in step-cut fashion over a period of about 3 inches. I then went ahead and shortened it about 2 inches. I weaved the two ends of the tendon back together utilizing a Pulvertaft weave and secured the weave with a combination of #5 Ethibond and #2 Ethibond [id number] sutures. Once I had woven the tendon together multiple times, the repair was looking very nice and solid. The elbow was set at about 30 degrees of flexion. The wound was irrigated out. I went ahead and let down the tourniquet. There was no active bleeding. Subcutaneous tissue was reapproximated with 3-0 Vicryl sutures. Skin was closed with silvino. A long-arm splint with a lateral buttress was applied with the elbow in about 60 degrees of flexion. He was taken to the recovery room in stable condition. Exam in the recovery room showed intact neurological function distally. [id number]/[facility] #: [id number] BETHANIE
== END 2019-04-23 12:40 | disposition home or self-care (01) | DRG 951 ==
LOC: OR 05:57 → ICU 14:22 → MEDTELE 04-22 19:03
PROVIDERS: ADMIT Orthopaedic Surgery Hand Surgery; ATTEND Internal Medicine
PROC: 0LU30JZ Supplement Right Upper Arm Tendon with Synthetic Substitute, Open Approach (ICD-10-PCS; principal; 2019-04-21 07:30)
PROC: B2111ZZ Fluoroscopy of Multiple Coronary Arteries using Low Osmolar Contrast (ICD-10-PCS; 2019-04-22)
DX: I21.4 Non-ST elevation (NSTEMI) myocardial infarction (principal); S46.201A Unspecified injury of muscle, fascia and tendon of other parts of biceps, right arm, initial encounter; X58.XXXA Exposure to other specified factors, initial encounter; I11.9 Hypertensive heart disease without heart failure; E78.5 Hyperlipidemia, unspecified; F32.9 Major depressive disorder, single episode, unspecified; G47.30 Sleep apnea, unspecified; I45.10 Unspecified right bundle-branch block; I25.119 Atherosclerotic heart disease of native coronary artery with unspecified angina pectoris; S46.211A Strain of muscle, fascia and tendon of other parts of biceps, right arm, initial encounter; F41.9 Anxiety disorder, unspecified; K21.9 Gastro-esophageal reflux disease without esophagitis; Z95.5 Presence of coronary angioplasty implant and graft; Y92.9 Unspecified place or not applicable; Z87.891 Personal history of nicotine dependence; I25.2 Old myocardial infarction; Z72.89 Other problems related to lifestyle; Z79.02 Long term (current) use of antithrombotics/antiplatelets
CPT/HCPCS: 36415; 71045; 80048; 80053; 80061; 83036; 84484; 85025; 85610; 85730; 87641; 93005; 93306; 93454; 99156; 99157; A9270-GY; C1760; C1887; J1100; J1644; J1885; J2250; J2270; J2405; J2704; J3010; J3490